=== PATIENT | female | born 1975 | race Caucasian/White ===

== ENCOUNTER 2017-08-24 08:32 | Inpatient (IN) | payer MEDICAID ==
[2017-08-24 10:37] LABS: ADD MAN DIFF? NO
[2017-08-24 10:47] LABS: WHITE BLOOD COUNT 7.8 10^3/ul (4.8-10.8)
[2017-08-24 10:47] LABS: BASOPHILS % 0.3 % (0.0-2.0); EOSINOPHILS % 0.5 % (0.0-7.0); HEMATOCRIT 25.3 % (37.0-47.0); HEMOGLOBIN 7.7 g/dl (12.0-16.0); LYMPHOCYTES # 1.1 10^3/ul (0.8-2.9); LYMPHOCYTES % 13.4 % (15.0-51.0); MEAN CORPUSCULAR HEMOGLOBIN 29.2 pg (29.0-33.0); MEAN CORPUSCULAR HGB CONC 30.4 g/dl (32.0-37.0); MEAN CORPUSCULAR VOLUME 95.8 fl (82.0-101.0); MEAN PLATELET VOLUME 9.4 fl (7.4-10.4); MONOCYTE # 0.4 10^3/ul (0.3-0.9); MONOCYTES % 5.1 % (0.0-11.0); NEUTROPHIL # 6.3 10^3/ul (1.6-7.5); NEUTROPHILS % 80.2 % (39.0-77.0); NUCLEATED RED BLOOD CELLS% 0.4 /100WBC (0.0-0.0); PLATELET COUNT 346 10^3/UL (140-415); RED BLOOD COUNT 2.64 10^6/ul (4.20-5.40); RED CELL DISTRIBUTION WIDTH 14.9 % (11.5-14.5)
[2017-08-24 11:03] LABS: ANION GAP 14 (8-16); BLOOD UREA NITROGEN 46 mg/dl (7-20); CALCIUM 8.8 mg/dl (8.4-10.2); CARBON DIOXIDE 22 mmol/L (21-31); CHLORIDE 109 mmol/L (97-110); CREATININE 12.59 mg/dl (0.44-1.00); GLUCOSE 89 mg/dl (70-220); POTASSIUM 3.6 mmol/L (3.5-5.1); SODIUM 141 mmol/L (135-144)
[2017-08-24 11:07] LABS: PROTIME 13.3 Sec (11.9-14.9)
[2017-08-24 11:08] LABS: PARTIAL THROMBOPLASTIN TIME 29.6 Sec (25.0-35.0)
[2017-08-24] MEDS ORDERED: FUROSEMIDE 20 MG TAB PO (13:30)
[2017-08-24] MEDS ORDERED: ACETAMINOPHEN 325 MG TAB PO (14:00)
[2017-08-24] MEDS ORDERED: ONDANSETRON 4 MG INJ IV (14:00)
[2017-08-24] MEDS: CALCIUM ACETATE 667 MG CAP PO (18:12)
[2017-08-24] MEDS: LEVETIRACETAM 500 MG TAB PO (21:32)
[2017-08-25 06:04] LABS: ADD MAN DIFF? NO
[2017-08-25 06:24] LABS: WHITE BLOOD COUNT 6.7 10^3/ul (4.8-10.8)
[2017-08-25 06:24] LABS: BASOPHILS % 0.5 % (0.0-2.0); EOSINOPHILS # 0.1 10^3/ul (0.0-0.5); EOSINOPHILS % 1.1 % (0.0-7.0); HEMATOCRIT 23.4 % (37.0-47.0); HEMOGLOBIN 7.2 g/dl (12.0-16.0); LYMPHOCYTES # 1.7 10^3/ul (0.8-2.9); LYMPHOCYTES % 25.6 % (15.0-51.0); MEAN CORPUSCULAR HEMOGLOBIN 29.3 pg (29.0-33.0); MEAN CORPUSCULAR HGB CONC 30.8 g/dl (32.0-37.0); MEAN CORPUSCULAR VOLUME 95.1 fl (82.0-101.0); MEAN PLATELET VOLUME 9.5 fl (7.4-10.4); MONOCYTE # 0.6 10^3/ul (0.3-0.9); MONOCYTES % 8.6 % (0.0-11.0); NEUTROPHIL # 4.3 10^3/ul (1.6-7.5); NEUTROPHILS % 63.7 % (39.0-77.0); PLATELET COUNT 296 10^3/UL (140-415); RED BLOOD COUNT 2.46 10^6/ul (4.20-5.40); RED CELL DISTRIBUTION WIDTH 15.3 % (11.5-14.5)
[2017-08-25 06:39] LABS: ANION GAP 13 (8-16); BLOOD UREA NITROGEN 52 mg/dl (7-20); CALCIUM 8.6 mg/dl (8.4-10.2); CARBON DIOXIDE 20 mmol/L (21-31); CHLORIDE 111 mmol/L (97-110); GLUCOSE 83 mg/dl (70-220); MAGNESIUM 2.5 mg/dl (1.7-2.5); PHOSPHORUS 3.8 mg/dl (2.5-4.9); POTASSIUM 5.2 mmol/L (3.5-5.1); SODIUM 139 mmol/L (135-144)
[2017-08-25 06:54] LABS: CREATININE 13.37 mg/dl (0.44-1.00)
[2017-08-25] MEDS: CALCIUM ACETATE 667 MG CAP PO ×3 (08:51→17:33)
[2017-08-25] MEDS: LEVETIRACETAM 500 MG TAB PO ×2 (08:52→20:12)
[2017-08-25] MEDS: AMLODIPINE 10 MG TAB PO (08:52)
[2017-08-25] MEDS: HYDROCHLOROTHIAZIDE 25 MG TAB PO (08:52)
[2017-08-25] MEDS: CALCITRIOL 0.25 MCG CAP PO (08:52)
[2017-08-25] MEDS: LEVETIRACETAM 250 MG TAB PO (11:32)
[2017-08-25 11:34] LABS: POTASSIUM 4.1 mmol/L (3.5-5.1)
[2017-08-25] MEDS ORDERED: MIDAZOLAM 1 MG/ML 2 ML INJ (13:33)
[2017-08-25] MEDS ORDERED: FENTAnyl 50 MCG/ML VIAL (13:33)
[2017-08-25] MEDS ORDERED: LIDOCAINE 2% (SDV) 5 ML INJ (13:33)
[2017-08-25] MEDS ORDERED: PROPOFOL 40 ML (13:33)
[2017-08-25] MEDS ORDERED: HEPARIN 1000 UNITS/ML 10 ML INJ (13:35)
[2017-08-25] MEDS ORDERED: LIDOCAINE 1% (MDV) 20 ML INJ (13:35)
[2017-08-25] MEDS ORDERED: CEFAZOLIN 1 GM/50 ML (PMX) 50 ML IVPB (13:36)
[2017-08-25] MEDS: EPOETIN 10000 UNITS/1 ML INJ (ESRD) SC (17:33)
[2017-08-25 17:50] LABS: HEPATITIS B SURFACE ANTIGEN NEGATIVE (NEGATIVE)
[2017-08-25] MEDS ORDERED: HEPARIN 1000 UNITS/ML 10 ML INJ CATHETER (18:00)
[2017-08-26] MEDS: HYDROCHLOROTHIAZIDE 25 MG TAB PO (08:38)
[2017-08-26] MEDS: CALCITRIOL 0.25 MCG CAP PO (08:38)
[2017-08-26] MEDS: CALCIUM ACETATE 667 MG CAP PO ×3 (08:38→18:16)
[2017-08-26] MEDS: LEVETIRACETAM 500 MG TAB PO ×2 (08:38→21:01)
[2017-08-26] MEDS: AMLODIPINE 10 MG TAB PO (08:39)
[2017-08-26] MEDS: HEPARIN 5,000 UNIT/0.5 ML VIAL SC ×2 (08:41→21:04)
[2017-08-26] MEDS: INFLUENZA VIRUS VACCINE 0.5 ML (DISPENSING) IM* (09:00)
[2017-08-26 12:07] LABS: ANION GAP 11 (8-16); BLOOD UREA NITROGEN 27 mg/dl (7-20); CALCIUM 8.6 mg/dl (8.4-10.2); CARBON DIOXIDE 28 mmol/L (21-31); CHLORIDE 103 mmol/L (97-110); CREATININE 9.28 mg/dl (0.44-1.00); GLUCOSE 97 mg/dl (70-220); MAGNESIUM 2.2 mg/dl (1.7-2.5); PHOSPHORUS 3.7 mg/dl (2.5-4.9); POTASSIUM 3.5 mmol/L (3.5-5.1); SODIUM 138 mmol/L (135-144)
[2017-08-27 05:33] LABS: ADD MAN DIFF? NO
[2017-08-27 05:36] LABS: BASOPHILS % 0.5 % (0.0-2.0); EOSINOPHILS # 0.1 10^3/ul (0.0-0.5); EOSINOPHILS % 1.9 % (0.0-7.0); HEMATOCRIT 23.1 % (37.0-47.0); HEMOGLOBIN 7.1 g/dl (12.0-16.0); LYMPHOCYTES # 1.8 10^3/ul (0.8-2.9); LYMPHOCYTES % 28.1 % (15.0-51.0); MEAN CORPUSCULAR HEMOGLOBIN 29.3 pg (29.0-33.0); MEAN CORPUSCULAR HGB CONC 30.7 g/dl (32.0-37.0); MEAN CORPUSCULAR VOLUME 95.5 fl (82.0-101.0); MEAN PLATELET VOLUME 9.1 fl (7.4-10.4); MONOCYTE # 0.6 10^3/ul (0.3-0.9); MONOCYTES % 9.6 % (0.0-11.0); NEUTROPHIL # 3.9 10^3/ul (1.6-7.5); NEUTROPHILS % 59.6 % (39.0-77.0); PLATELET COUNT 294 10^3/UL (140-415); RED BLOOD COUNT 2.42 10^6/ul (4.20-5.40); RED CELL DISTRIBUTION WIDTH 15.1 % (11.5-14.5)
[2017-08-27 05:36] LABS: WHITE BLOOD COUNT 6.5 10^3/ul (4.8-10.8)
[2017-08-27] MEDS: PANTOPRAZOLE (EC) 40 MG TAB PO (05:45)
[2017-08-27 07:15] LABS: ANION GAP 14 (8-16); BLOOD UREA NITROGEN 37 mg/dl (7-20); CALCIUM 8.7 mg/dl (8.4-10.2); CARBON DIOXIDE 25 mmol/L (21-31); CHLORIDE 105 mmol/L (97-110); GLUCOSE 93 mg/dl (70-220); MAGNESIUM 2.2 mg/dl (1.7-2.5); PHOSPHORUS 4.6 mg/dl (2.5-4.9); POTASSIUM 3.5 mmol/L (3.5-5.1); SODIUM 140 mmol/L (135-144)
[2017-08-27] MEDS: HYDROCHLOROTHIAZIDE 25 MG TAB PO (08:07)
[2017-08-27] MEDS: AMLODIPINE 10 MG TAB PO (08:08)
[2017-08-27] MEDS: CALCIUM ACETATE 667 MG CAP PO ×3 (08:14→18:05)
[2017-08-27] MEDS: LEVETIRACETAM 500 MG TAB PO ×2 (08:14→20:18)
[2017-08-27] MEDS: CALCITRIOL 0.25 MCG CAP PO (08:14)
[2017-08-27] MEDS: HEPARIN 5,000 UNIT/0.5 ML VIAL SC ×2 (08:16→20:23)
[2017-08-27] MEDS: EPOETIN 10000 UNITS/1 ML INJ (ESRD) SC (18:06)
[2017-08-28 00:16] LABS: IMMEDIATE SPIN CROSSMATCH 1 1
[2017-08-28] MEDS: PANTOPRAZOLE (EC) 40 MG TAB PO (05:31)
[2017-08-28] MEDS: CALCIUM ACETATE 667 MG CAP PO ×3 (08:57→17:58)
[2017-08-28] MEDS: CALCITRIOL 0.25 MCG CAP PO (08:57)
[2017-08-28] MEDS: LEVETIRACETAM 500 MG TAB PO (08:57)
[2017-08-28] MEDS: AMLODIPINE 10 MG TAB PO (09:00)
[2017-08-28] MEDS: HYDROCHLOROTHIAZIDE 25 MG TAB PO (09:00)
[2017-08-28] MEDS: HEPARIN 5,000 UNIT/0.5 ML VIAL SC (09:12)
[2017-08-28 10:10] LABS: ADD MAN DIFF? NO
[2017-08-28 10:15] LABS: WHITE BLOOD COUNT 8.2 10^3/ul (4.8-10.8)
[2017-08-28 10:15] LABS: BASOPHIL # 0.1 10^3/ul (0.0-0.1); BASOPHILS % 0.7 % (0.0-2.0); EOSINOPHILS # 0.1 10^3/ul (0.0-0.5); EOSINOPHILS % 1.6 % (0.0-7.0); HEMATOCRIT 34.9 % (37.0-47.0); HEMOGLOBIN 10.7 g/dl (12.0-16.0); LYMPHOCYTES # 1.5 10^3/ul (0.8-2.9); LYMPHOCYTES % 18.1 % (15.0-51.0); MEAN CORPUSCULAR HEMOGLOBIN 29.1 pg (29.0-33.0); MEAN CORPUSCULAR HGB CONC 30.7 g/dl (32.0-37.0); MEAN CORPUSCULAR VOLUME 94.8 fl (82.0-101.0); MEAN PLATELET VOLUME 9.8 fl (7.4-10.4); MONOCYTE # 0.8 10^3/ul (0.3-0.9); MONOCYTES % 10.1 % (0.0-11.0); NEUTROPHIL # 5.7 10^3/ul (1.6-7.5); NEUTROPHILS % 69.1 % (39.0-77.0); PLATELET COUNT 359 10^3/UL (140-415); RED BLOOD COUNT 3.68 10^6/ul (4.20-5.40); RED CELL DISTRIBUTION WIDTH 15.8 % (11.5-14.5)
[2017-08-28] MEDS ORDERED: HEPARIN 1000 UNITS/ML 10 ML INJ CATHETER (11:30)
[2017-08-28] MEDS: ALTEPLASE (CATHFLO) 2 MG INJ CATHETER ×3 (13:00→23:21)
[2017-08-28] MEDS ORDERED: IODIXANOL LOCM 50 ML BTL (16:29)
[2017-08-29] MEDS: HEPARIN 5,000 UNIT/0.5 ML VIAL SC ×3 (00:11→20:53)
[2017-08-29] MEDS: LEVETIRACETAM 500 MG TAB PO ×3 (00:12→20:50)
[2017-08-29] MEDS: PANTOPRAZOLE (EC) 40 MG TAB PO (05:30)
[2017-08-29] MEDS: CALCITRIOL 0.25 MCG CAP PO (08:33)
[2017-08-29] MEDS: CALCIUM ACETATE 667 MG CAP PO ×3 (08:33→17:36)
[2017-08-29] MEDS: HYDROCHLOROTHIAZIDE 25 MG TAB PO (08:40)
[2017-08-29] MEDS: AMLODIPINE 10 MG TAB PO (08:40)
[2017-08-29] MEDS ORDERED: POLYETHYLENE GLYCOL 17 GM PACKET PO (15:00)
[2017-08-29] MEDS: ACETAMINOPHEN 325 MG TAB PO (15:27)
[2017-08-29] MEDS: HEPARIN 1000 UNITS/ML 10 ML INJ CATHETER (16:26)
[2017-08-29] MEDS: EPOETIN 10000 UNITS/1 ML INJ (ESRD) SC (17:37)
[2017-08-30] MEDS: PANTOPRAZOLE (EC) 40 MG TAB PO (05:55)
[2017-08-30] MEDS: LEVETIRACETAM 500 MG TAB PO (08:41)
[2017-08-30] MEDS: CALCIUM ACETATE 667 MG CAP PO ×2 (08:41→12:26)
[2017-08-30] MEDS: AMLODIPINE 10 MG TAB PO (08:42)
[2017-08-30] MEDS: CALCITRIOL 0.25 MCG CAP PO (08:42)
[2017-08-30] MEDS: HYDROCHLOROTHIAZIDE 25 MG TAB PO (08:42)
[2017-08-30] MEDS: HEPARIN 5,000 UNIT/0.5 ML VIAL SC (08:46)
== END 2017-08-30 13:54 | disposition home or self-care (01) | DRG 314 ==
LOC: E/R 08:32 → MS2 13:57
PROC: 0JHL3XZ Insertion of Tunneled Vascular Access Device into Right Upper Leg Subcutaneous Tissue and Fascia, Percutaneous Approach (ICD-10-PCS; principal; 2017-08-27 15:46)
PROC: 06PY33Z Removal of Infusion Device from Lower Vein, Percutaneous Approach (ICD-10-PCS; 2017-08-27 15:46)
PROC: 06H033Z Insertion of Infusion Device into Inferior Vena Cava, Percutaneous Approach (ICD-10-PCS; 2017-08-27 15:46)
PROC: B519YZA Fluoroscopy of Inferior Vena Cava using Other Contrast, Guidance (ICD-10-PCS; 2017-08-27 15:46)
PROC: 5A1D70Z Performance of Urinary Filtration, Intermittent, Less than 6 Hours Per Day (ICD-10-PCS; 2017-08-27 15:46)
PROC: 5A1D70Z Performance of Urinary Filtration, Intermittent, Less than 6 Hours Per Day (ICD-10-PCS; 2017-08-27 15:46)
PROC: 5A1D70Z Performance of Urinary Filtration, Intermittent, Less than 6 Hours Per Day (ICD-10-PCS; 2017-08-27 15:46)
PROC: 30233N1 Transfusion of Nonautologous Red Blood Cells into Peripheral Vein, Percutaneous Approach (ICD-10-PCS; 2017-08-27 15:46)
DX: T82.41XA Breakdown (mechanical) of vascular dialysis catheter, initial encounter (principal); N18.6 End stage renal disease; I12.0 Hypertensive chronic kidney disease with stage 5 chronic kidney disease or end stage renal disease; E87.2 Acidosis; T82.868A Thrombosis due to vascular prosthetic devices, implants and grafts, initial encounter; E87.5 Hyperkalemia; Z99.2 Dependence on renal dialysis; G40.909 Epilepsy, unspecified, not intractable, without status epilepticus; D64.9 Anemia, unspecified; Y83.8 Other surgical procedures as the cause of abnormal reaction of the patient, or of later complication, without mention of misadventure at the time of the procedure; Y92.531 Health care provider office as the place of occurrence of the external cause
CPT/HCPCS: 36005; 36415; 36430; 36581; 71045; 72170; 75820; 75822; 80048; 82962; 83735; 84100; 84132; 84702; 84703; 85025; 85610; 85730; 86850; 86900; 86901; 86920; 87340; 90935; 93005; 93970; 99285-25